=== PATIENT | male | born 1975 | race Caucasian/White ===

== ENCOUNTER → 2024-06-19 09:22 | Day surgery (SDC) | payer OTHER, SELFPAY ==
--- NOTE | 2024-06-19 09:56 | FL_ITS ---
[address] [address] Patient Name: YOHANNES MCHUGH MRN: [id number] date: 1975 Sex: M Assigned Patient Location: [place] Current Patient Location: LAB Accession/Order Number: [id number] Exam Date: 06/19/2024 10:00 Report Date: 06/19/2024 11:51 At the request of: LINSEY SANCHEZ Procedure: FL hip inj RT EXAMINATION: FL hip inj RT, FL guided needle placement HISTORY: Tear Of Right Acetabular Labrum COMPARISON: No relevant comparison available. FLUORO DOSE: unknown TECHNIQUE: A joint injection was performed in the usual sterile manner after obtaining informed consent. Standard level fluoroscopic mode of operation utilized. FINDINGS: JOINT: Right hip. NEEDLE: 22 gauge, 3.5 spinal needle. MEDICATION: 6 cc buffered 1% lidocaine for subcutaneous anesthesia 3 mL Omnipaque 240, 40 mg Kenalog, 0.5% 2 mL 15 injected into the joint space. TECHNIQUE: Anterior approach with prior localization of the femoral artery. A single stick was successful in gaining access to the joint space. CLINICAL: Pre injection pain 3 out of 10, post injection pain 1 out of 10 COMPLICATIONS: None. OTHER: Negative. FL/FL hip inj RT IMPRESSION: Technically successful right hip therapeutic arthrogram Electronically authenticated by: MARY THOMPSON Date: 06/19/2024 11:51
--- NOTE | 2024-06-19 09:56 | FL_ITS ---
[address] [address] Patient Name: YOHANNES MCHUGH MRN: [id number] date: 1975 Sex: M Assigned Patient Location: [place] Current Patient Location: LAB Accession/Order Number: [id number] Exam Date: 06/19/2024 10:00 Report Date: 06/19/2024 11:51 At the request of: LINSEY SANCHEZ Procedure: FL guided needle placement EXAMINATION: FL hip inj RT, FL guided needle placement HISTORY: Tear Of Right Acetabular Labrum COMPARISON: No relevant comparison available. FLUORO DOSE: unknown TECHNIQUE: A joint injection was performed in the usual sterile manner after obtaining informed consent. Standard level fluoroscopic mode of operation utilized. FINDINGS: JOINT: Right hip. NEEDLE: 22 gauge, 3.5 spinal needle. MEDICATION: 6 cc buffered 1% lidocaine for subcutaneous anesthesia 3 mL Omnipaque 240, 40 mg Kenalog, 0.5% 2 mL 15 injected into the joint space. TECHNIQUE: Anterior approach with prior localization of the femoral artery. A single stick was successful in gaining access to the joint space. CLINICAL: Pre injection pain 3 out of 10, post injection pain 1 out of 10 COMPLICATIONS: None. OTHER: Negative. FL/FL guided needle placement IMPRESSION: Technically successful right hip therapeutic arthrogram Electronically authenticated by: MARY THOMPSON Date: 06/19/2024 11:51
[2024-06-19] MEDS: BUPIVACAINE HCL 0.5% PF 50 MG/10 ML VIAL 2 ML INJ (10:35)
[2024-06-19] MEDS: TRIAMCINOLONE ACETONIDE 40 MG/ML VIAL INJ (10:35)
[2024-06-19] MEDS: LIDOCAINE HCL 10 ML, SODIUM BICARBONATE 1 MEQ INJ (10:35)
--- NOTE | 2024-06-19 11:46 | SUR.PREOP ---
06/13/24 Pt instructed on procedure, date, time, and prep.
--- NOTE | 2024-06-19 11:56 | PC.NURSE ---
1042 Pt had shooting pain down leg during injection. Dr Barker aware and believes may have been a nerve injury with injection. 1050 Pt c/o pain with lifting leg but denies pain when standing. Overall pain is better than before procedure. Pt encouraged to followup with Dr Zavaleta if sharp nerve pain does not resolve after a few days.
== END ==
LOC: FL 09:27
PROVIDERS: Radiology Diagnostic Radiology; PCP Internal Medicine; Visit Provider Orthopaedic Surgery
DX: S73.191A Other sprain of right hip, initial encounter (principal); M79.89 Other specified soft tissue disorders; M79.641 Pain in right hand; M79.642 Pain in left hand
CPT/HCPCS: 20610; 36415; 77002; 84550; 85652; 86038; 86200; 86431; J0665; J3301; Q9966

== ENCOUNTER 2024-06-19 09:30 | Outpatient (OUT) | payer OTHER, SELFPAY ==
[2024-06-19 10:37] LABS: Erythrocyte Sedimentation Rate 116 mm/hr (<=15)
[2024-06-19 10:46] LABS: Uric Acid 3.7 mg/dL (3.5-7.2)
[2024-06-20 06:09] LABS: Rheumatoid Factor (RF) 19.5 IU/mL (<14.0)
[2024-06-20 14:11] LABS: Anti-CCP Ab, IgG/IgA 5 units (0-19)
== END 2024-06-19 09:31 | disposition home or self-care (01) ==
LOC: LAB 09:32
PROVIDERS: PCP Internal Medicine
DX: M79.89 Other specified soft tissue disorders (principal); M79.641 Pain in right hand; M79.642 Pain in left hand
CPT/HCPCS: 36415; 84550; 85652; 86038; 86200; 86431